=== PATIENT | male | born 1960 | race Caucasian/White ===

== ENCOUNTER → 2016-11-17 | Outpatient (CLI) | payer MEDICARE, OTHER | LOC: RAD 11:01 | DX: M54.5 Low back pain (principal); M79.605 Pain in left leg; M79.604 Pain in right leg; M47.816 Spondylosis without myelopathy or radiculopathy, lumbar region | CPT/HCPCS: 72110; 73590 ==

== ENCOUNTER → 2017-01-02 | Outpatient (CLI) | payer MEDICARE, OTHER | LOC: KOH-I 11:30 | DX: M79.604 Pain in right leg (principal) | CPT/HCPCS: 73700 ==